=== PATIENT | male | born 1980 | race African-American/Black ===

== ENCOUNTER → 2016-08-10 | Emergency (ER) | payer MEDICAID ==
[~2016-08-10] VITALS: Ht 188 cm; Wt 68.0 kg
[~2016-08-10] MED LIST: IBUPROFEN600 M1 PO; IBUPROFEN600 MG ORAL; MEDROL DOSEPAK4 MG ORAL; NKM; NORCO 5-325 TA1 EACH ORAL; ROBAXIN-750750 MG PO
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
--- NOTE | 2016-08-10 16:31 | Diagnostic Imaging Report ---
Indication: PAIN Technique: 3 views of the lumbar spine Comparison: None Findings:Bony alignment is normal. Vertebral body heights are preserved. Disc spaces are preserved Impression:Negative
[2016-08-10 17:25] VITALS: BP 126/79
== END | disposition home or self-care (01) ==
LOC: EMR 14:30
DX: S33.5XXA Sprain of ligaments of lumbar spine, initial encounter (principal); V43.62XA Car passenger injured in collision with other type car in traffic accident, initial encounter; Y93.9 Activity, unspecified; Y92.410 Unspecified street and highway as the place of occurrence of the external cause
CPT/HCPCS: 72020; 99284